=== PATIENT | female | born 1995 | race Caucasian/White ===

== ENCOUNTER 2022-05-25 14:43 | Emergency (ER) | payer OTHER, SELFPAY ==
[2022-05-25 14:58] VITALS: BP 117/71; PULSE 92; RESP 16; TEMP 36.8; O2SAT 99; BMI 30.2
--- NOTE | 2022-05-25 15:00 | ED_ITS ---
HPI - General Adult General Chief complaint: Dyspnea <Hugo Malik - Last Filed: 05/25/22 15:02> Stated complaint: SOB/Lightheaded <Hugo Mailk - Last Filed: 05/25/22 15:02> Time Seen by Provider: 05/25/22 15:08 <Hugo Malik - Last Filed: 05/25/22 15:02> Source: patient <CORONA Kramer - Last Filed: 05/25/22 20:12> Mode of arrival: ambulatory <CORONA Kramer - Last Filed: 05/25/22 20:12> History of Present Illness HPI narrative: 27-year-old female with no significant past medical history presenting to the ED complaining of abnormal vaginal discharge/spotting beginning last night with associated lightheadedness and mild SOB. Denies taking anticoagulation. Reports recent sexual encounter with female, however denies concern for STI. LMP a few weeks ago. Denies dysuria, hematuria, abdominal pain, back pain/flank pain, CP, cough, recent travel, history of clots <CORONA Kramer - Last Filed: 05/25/22 20:12> Onset (ago): day(s) <CORONA Kramer - Last Filed: 05/25/22 20:12> Related Data Allergies/adverse reactions: Allergies Allergy/AdvReac Type Severity Reaction Status Date / Time fluoxetine [From Prozac] Allergy Unknown Verified 05/25/22 14:58 <Hugo Malik - Last Filed: 05/25/22 15:02> Review of Systems Review of Systems: Constitutional: No Fever, No Chills, No Fatigue, No Malaise ENT/Mouth: No Ear Pain, No Nasal Congestion, No sore throat, No Rhinorrhea, No Swallowing Difficulty Eyes: No Eye Pain, No Swelling, No Redness, No Vision Changes Cardiovascular: No Chest Pain, + SOB, No Edema, No Palpitations Respiratory: No Cough, No Sputum, No Dyspnea Gastrointestinal: No Nausea, No Vomiting, No Diarrhea, No Constipation, No Abdominal pain Genitourinary: + irregular bleeding, No Dysuria, No Urinary Frequency, No Hematuria, No Flank Pain Musculoskeletal: No joint pain, No Myalgias, No Joint Swelling Skin: No Skin Lesions, No rash Neuro: No Weakness, No Loss of Consciousness, + lightheaded, No Headache <CORONA Kramer - Last Filed: 05/25/22 20:12> Yes all other systems are reviewed and are negative <CORONA Kramer - Last Filed: 05/25/22 20:12> Constitutional: Constitutional: Reports as per HPI <CORONA Kramer - Last Filed: 05/25/22 20:12> Neurologic: Denies Abnormal speech present <CORONA Kramer - Last Filed: 05/25/22 20:12> [facility] Past Medical History Attestation statement: The following information was validated with the patient. <CORONA Kramer Last Filed: 05/25/22 20:12> Social History Social History: Social History Advance Directives: No Advance Directives Information Provided: Yes <Hugo Malik - Last Filed: 05/25/22 15:02> Physical Exam ED Vital Signs: Vital Signs - 24 hr 05/25/22 14:58 Temperature 98.3 F Pulse Rate 92 Respiratory Rate 16 Blood Pressure 117/71 Pulse Oximetry 99 Oxygen Delivery Method Room Air BMI result Body Mass Index 30.2 <Hugo Malik - Last Filed: 05/25/22 15:02> Vital Signs - 24 hr 05/25/22 14:58 Temperature 98.3 F Pulse Rate 92 Respiratory Rate 16 Blood Pressure 117/71 Pulse Oximetry 99 Oxygen Delivery Method Room Air BMI result Body Mass Index 30.2 <CORONA Kramer - Last Filed: 05/25/22 20:12> Const General: cooperative, healthy appearing, comfortable, no acute distress and anxious <CORONA Kramer - Last Filed: 05/25/22 20:12> Orientation/consciousness: patient oriented x3 <CORONA Kramer - Last Filed: 05/25/22 20:12> Limitations: no limitations <CORONA Kramer Last Filed: 05/25/22 20:12> HENMT Head: Yes normal to inspection and Yes atraumatic <CORONA Kramer - Last Filed: 05/25/22 20:12> Ears: hearing grossly normal bilaterally <CORONA Kramer - Last Filed: 05/25/22 20:12> General nose exam: Normal external nose present <CORONA Kramer - Last Filed: 05/25/22 20:12> Face and sinus: Yes normal facial exam <CORONA Kramer - Last Filed: 05/25/22 20:12> Eyes General: appearance normal, both eyes and all related structures <CORONA Kramer - Last Filed: 05/25/22 20:12> EOM: EOMs intact bilaterally <CORONA Kramer - Last Filed: 05/25/22 20:12> Neck Neck: Yes normal visual inspection and Yes no meningeal signs <CORONA Kramer - Last Filed: 05/25/22 20:12> Resp Effort & Inspection: normal respiratory effort and no respiratory distress <CORONA Kramer - Last Filed: 05/25/22 20:12> Auscultation: clear to auscultation bilaterally <Swetha Mao [place] - Last Filed: 05/25/22 20:12> Cardio Rate: regular rate <Swetha Mao [place] - Last Filed: 05/25/22 20:12> Heart sounds: S1 normal heart sound present and S2 normal heart sound present <Swetha Mao PA - Last Filed: 05/25/22 20:12> GI Inspection: Yes normal to inspection <Swetha Mao [place] - Last Filed: 05/25/22 20:12> Palpation (GI): Soft to palpation, nontender, no guarding and not rigid <Swetha Mao PA - Last Filed: 05/25/22 20:12> General: Yes no CVA tenderness <Swetha Mao PA - Last Filed: 05/25/22 20:12> External Female Exam: normal external appearance <CORONA Kramer - Last Filed: 05/25/22 20:12> Speculum Exam - Vagina: normal vaginal discharge, no lacerations, no lesions, vaginal bleeding (Scant vaginal bleeding) and no swelling <CORONA Kramer - Last Filed: 05/25/22 20:12> OB/external & speculum: vaginal bleeding (Scant vaginal bleeding) <CORONA Kramer - Last Filed: 05/25/22 20:12> Back/Spine/Pelvis Back: no CVA tenderness <CORONA Kramer - Last Filed: 05/25/22 20:12> Skin Rashes: no rashes <CORONA Kramer - Last Filed: 05/25/22 20:12> Wounds: no wounds <CORONA Kramer - Last Filed: 05/25/22 20:12> Neuro General: patient oriented x3, gait normal, tone normal, moves all extremities, no meningeal signs, no focal motor deficits and CN's II-XI intact bilaterally <CORONA Kramer - Last Filed: 05/25/22 20:12> Cranial nerves: Yes CN's II-XII intact bilaterally and Yes Bilaterally intact EOM present <CORONA Kramer - Last Filed: 05/25/22 20:12> Cognition (Neuro): normal cognition <CORONA Kramer - Last Filed: 05/25/22 20:12> Speech: No Abnormal speech present <CORONA Kramer - Last Filed: 05/25/22 20:12> Gait exam (Neuro): Normal gait present <CORONA Kramer - Last Filed: 05/25/22 20:12> Motor exam (neuro): 5/5 motor strength present throughout <CORONA Kramer - Last Filed: 05/25/22 20:12> Extrem General: Yes normal to inspection <CORONA Kramer - Last Filed: 05/25/22 20:12> Course Course Course Narrative: RME- 27 year old female presents for evaluation of lightheadedness and shortness of breath. Symptoms started today while walking. Patient reports that yesterday she had a small amount of blood when urinating and has been urinating more frequently. Plan for labs and UA <Hugo Malik - Last Filed: 05/25/22 15:02> RME- 27 year old female presents for evaluation of lightheadedness and shortness of breath. Symptoms started today while walking. Patient reports that yesterday she had a small amount of blood when urinating and has been urinating more frequently. Plan for labs and UA -labs and UA unremarkable Results discussed with patient including worrisome signs and symptoms and strict return precautions, and when to return to the emergency department. They verba lized understanding and feel safe for discharge at this time. <CORONA Kramer - Last Filed: 05/25/22 20:12> Medical Decision Making Medical Decision Making [facility] Narrative: 27-year-old female with no significant past medical history presenting to the ED complaining of abnormal vaginal discharge/spotting beginning last night with associated lightheadedness and mild SOB. On exam vital signs stable, patient is anxious, NAD, nontoxic appearing, abdomen soft/nontender, no CVA tenderness, scant vaginal bleeding noted on exam, no appreciable abnormal discha rge. No lesions. Lungs CTA. Concern for menstruation vs STI vs anemia vs viral syndrome or dehydration/metabolic abnormalities. Low suspicion for ovarian torsion/appendicitis, diverticulitis, PE/ACS. Rule out UTI/infectious etiology Plan: Labs, UA, , STI testing Please refer to course for remaining clinical decision making, interpretation of labs/imaging results, and discussions with consultants and/or family members. <CORONA Kramer - Last Filed: 05/25/22 20:12> Differential Diagnosis Differential Diagnoses: The differential diagnosis associated with the presentation includes <CORONA Kramer - Last Filed: 05/25/22 20:12> As above <CORONA Kramer - Last Filed: 05/25/22 20:12> Admission/Observation Consideration of admission/observation: Escalation of care including admission/observation considered <CORONA Kramer - Last Filed: 05/25/22 20:12> Lab Data [facility] Lab Attestation statement: I reviewed the patient's lab results. <CORONA Kramer - Last Filed: 05/25/22 20:12> Result Diagrams: 05/25/22 15:06 <Hugo Malik - Last Filed: 05/25/22 15:02> Labs: Lab Results 05/25/22 05/25/22 05/25/22 Range/Units 15:06 16:21 16:21 WBC 9.4 (4.8-10.8) X10*3/uL RBC 4.43 (4.20-5.50) X10*6/uL Hgb 12.6 (12.0-16.0) g/dl Hct 37.7 (37.0-47.0) % MCV 85.1 (80.0-98.0) fL MCH 28.4 (27.0-33.0) pg MCHC 33.4 (31.0-35.0) g/dl RDW 12.9 (11.0-16.0) % Plt Count 301 (160-400) X10*3/uL MPV 9.9 (9.4-12.3) fL Immature Gran % (Auto) 0.3 (0.0-0.4) % Neut % (Auto) 60.1 (45-73) % Lymph % (Auto) 28.2 (20-40) % [place] % (Auto) 8.1 (2-11) % Eos % (Auto) 2.8 (0-4) % Baso % (Auto) 0.5 (0-2) % Lymph # (Auto) 2.6 (1.2-4.9) X10*3/uL [place] # (Auto) 0.8 (0.1-1.2) X10*3/uL Eos # (Auto) 0.3 (0.0-0.4) X10*3/uL Baso # (Auto) 0.1 (0.0-0.2) X10*3/uL Abs Immat Gran (auto) 0.03 (0.00-0.03) X10*3/uL Absolute Neuts (auto) 5.6 (2.0-8.3) x10*3/uL Absolute Nucleated RBC 0.000 (0.0-0.012) X10*3/uL Nucleated RBC % (auto) 0.0 (0.0-0.2) /100WBC Sodium 138 (135-145) mmol/L Potassium 4.5 (3.3-5.1) mmol/L Chloride 106 (96-108) mmol/L Carbon Dioxide 23 (22-29) mmol/L Anion Gap 14 (12-20) BUN 11 (9-16) mg/dL Creatinine 0.75 (0.5-1.4) mg/dL Estim Creat Clear Calc 117.1 Estimated GFR > 60 Random Glucose 91 (60-115) mg/dL Calcium 9.8 (8.4-10.2) mg/dL Magnesium 2.1 (1.6-2.6) mg/dL Total Bilirubin 0.3 (0.0-1.0) mg/dL AST 14 (5-31) U/L ALT 17 (0-31) U/L Alkaline Phosphatase 42 (39-117) U/L Total Protein 7.1 (6.5-8.0) g/dL Albumin 4.5 (3.5-5.0) g/dL Beta HCG, Quant < 2 mIU/mL Urine Color Yellow Urine Appearance Clear Urine pH 7.0 (5.0-9.0) Ur Specific [place] 1.010 (1.005-1.025) Urine Protein Negative (Neg-Trace) mg/dL Urine Glucose (UA) Negative (Negative) mg/dL Urine Ketones Negative (Negative) mg/dL Urine Blood Trace H (Negative) Urine Nitrite Negative (Negative) Ur Leukocyte Esterase Trace H (Negative) Urine RBC 0-2 (0-2) /HPF Urine WBC 0-5 (0-5) /HPF Ur Squamous Epith Cells 3-5 (0-2) /HPF Urine Bacteria Trace (None Seen) Hyaline Casts 0-2 (0-2) /LPF <Hugo Malik - Last Filed: 05/25/22 15:02> Lab Results 05/25/22 05/25/22 05/25/22 Range/Units 15:06 16:21 16:21 WBC 9.4 (4.8-10.8) X10*3/uL RBC 4.43 (4.20-5.50) X10*6/uL Hgb 12.6 (12.0-16.0) g/dl Hct 37.7 (37.0-47.0) % MCV 85.1 (80.0-98.0) fL MCH 28.4 (27.0-33.0) pg MCHC 33.4 (31.0-35.0) g/dl RDW 12.9 (11.0-16.0) % Plt Count 301 (160-400) X10*3/uL MPV 9.9 (9.4-12.3) fL Immature Gran % (Auto) 0.3 (0.0-0.4) % Neut % (Auto) 60.1 (45-73) % Lymph % (Auto) 28.2 (20-40) % [place] % (Auto) 8.1 (2-11) % Eos % (Auto) 2.8 (0-4) % Baso % (Auto) 0.5 (0-2) % Lymph # (Auto) 2.6 (1.2-4.9) X10*3/uL [place] # (Auto) 0.8 (0.1-1.2) X10*3/uL Eos # (Auto) 0.3 (0.0-0.4) X10*3/uL Baso # (Auto) 0.1 (0.0-0.2) X10*3/uL Abs Immat Gran (auto) 0.03 (0.00-0.03) X10*3/uL Absolute Neuts (auto) 5.6 (2.0-8.3) x10*3/uL Absolute Nucleated RBC 0.000 (0.0-0.012) X10*3/uL Nucleated RBC % (auto) 0.0 (0.0-0.2) /100WBC Sodium 138 (135-145) mmol/L Potassium 4.5 (3.3-5.1) mmol/L Chloride 106 (96-108) mmol/L Carbon Dioxide 23 (22-29) mmol/L Anion Gap 14 (12-20) BUN 11 (9-16) mg/dL Creatinine 0.75 (0.5-1.4) mg/dL Estim Creat Clear Calc 117.1 Estimated GFR > 60 Random Glucose 91 (60-115) mg/dL Calcium 9.8 (8.4-10.2) mg/dL Magnesium 2.1 (1.6-2.6) mg/dL Total Bilirubin 0.3 (0.0-1.0) mg/dL AST 14 (5-31) U/L ALT 17 (0-31) U/L Alkaline Phosphatase 42 (39-117) U/L Total Protein 7.1 (6.5-8.0) g/dL Albumin 4.5 (3.5-5.0) g/dL Beta HCG, Quant < 2 mIU/mL Urine Color Yellow Urine Appearance Clear Urine pH 7.0 (5.0-9.0) Ur Specific [place] 1.010 (1.005-1.025) Urine Protein Negative (Neg-Trace) mg/dL Urine Glucose (UA) Negative (Negative) mg/dL Urine Ketones Negative (Negative) mg/dL Urine Blood Trace H (Negative) Urine Nitrite Negative (Negative) Ur Leukocyte Esterase Trace H (Negative) Urine RBC 0-2 (0-2) /HPF Urine WBC 0-5 (0-5) /HPF Ur Squamous Epith Cells 3-5 (0-2) /HPF Urine Bacteria Trace (None Seen) Hyaline Casts 0-2 (0-2) /LPF <CORONA Kramer - Last Filed: 05/25/22 20:12> Radiology Impression Discussion of test interpretation with radiology: I have reviewed the radiologist's reading. <CORONA Kramer - Last Filed: 05/25/22 20:12> External Record Review External record reviewed: Inpatient record, Office record, Outpatient record, Prior outpatient labs, Prior outpatient radiology, Primary care record and Outside ED record <CORONA Kramer - Last Filed: 05/25/22 20:12> Discharge Plan Discharge Clinical Impression: Vaginal spotting, Lightheaded <Hugo Malik - Last Filed: 05/25/22 15:02> Patient Disposition: Home, Self-Care <Hugo Malik - Last Filed: 05/25/22 15:02> Instructions: Lightheadedness (ED) <Hugo Malik - Last Filed: 05/25/22 15:02> Additional Instructions: Your blood work was reassuring. We tested you for sexually transmitted infections, these results should be back in 48-72 hours, you will be contacted with positive results only. Please avoid sexual contact until you knows the results of these cultures. Please stay hydrated If symptoms persist or worsen return to the emergency department <Hugo Malik - Last Filed: 05/25/22 15:02> Referrals: Physician,Unknown J [Primary Care Provider] - <Hugo Malik - Last Filed: 05/25/22 15:02> Interventions: ED Discharge Assessment Last Done: 05/25/22 18:39 <Hugo Malik - Last Filed: 05/25/22 15:02> Discharge Date/Time: 05/25/22 18:40 <Hugo Malik - Last Filed: 05/25/22 15:02>
[2022-05-25 15:29] LABS: Alanine Aminotransferase 17 U/L (0-31); Albumin Level 4.5 g/dL (3.5-5.0); Alkaline Phosphatase 42 U/L (39-117); Anion Gap 14 (12-20); Aspartate Amino Transferase 14 U/L (5-31); Bilirubin Total 0.3 mg/dL (0.0-1.0); Blood Urea Nitrogen 11 mg/dL (9-16); Calcium 9.8 mg/dL (8.4-10.2); Carbon Dioxide 23 mmol/L (22-29); Chloride 106 mmol/L (96-108); Creatinine Clr Calc Pharmacy 117.1; Estimated Glomerular Filt Rate > 60; Glucose Random 91 mg/dL (60-115); Potassium 4.5 mmol/L (3.3-5.1); Sodium 138 mmol/L (135-145); Total Protein 7.1 g/dL (6.5-8.0)
[2022-05-25 16:21] LABS: Magnesium 2.1 mg/dL (1.6-2.6)
[2022-05-25 16:27] LABS: HCG Quantitative < 2 mIU/mL
[2022-05-25 16:30] LABS: MANUAL DIFF FLAG NO
[2022-05-25 16:32] LABS: Basophils Absolute Auto 0.1 X10*3/uL (0.0-0.2); Basophils Percent Auto 0.5 % (0-2); Eosinophils Absolute Auto 0.3 X10*3/uL (0.0-0.4); Eosinophils Percent Auto 2.8 % (0-4); Hematocrit 37.7 % (37.0-47.0); Hemoglobin 12.6 g/dl (12.0-16.0); Imm Gran Abs Auto 0.03 X10*3/uL (0.00-0.03); Imm Gran Pct Auto 0.3 % (0.0-0.4); Lymphocytes Absolute Auto 2.6 X10*3/uL (1.2-4.9); Lymphocytes Percent Auto 28.2 % (20-40); Mean Corpuscular HGB Conc 33.4 g/dl (31.0-35.0); Mean Corpuscular Hemoglobin 28.4 pg (27.0-33.0); Mean Corpuscular Volume 85.1 fL (80.0-98.0); Mean Platelet Volume 9.9 fL (9.4-12.3); Monocytes Absolute Auto 0.8 X10*3/uL (0.1-1.2); Monocytes Percent Auto 8.1 % (2-11); Neutrophils Absolute Auto 5.6 x10*3/uL (2.0-8.3); Neutrophils Percent Auto 60.1 % (45-73); Platelet Count 301 X10*3/uL (160-400); Red Blood Count 4.43 X10*6/uL (4.20-5.50); Red Cell Distribution Width 12.9 % (11.0-16.0); White Blood Count 9.4 X10*3/uL (4.8-10.8)
[2022-05-25 16:34] LABS: Appearance Urine Clear; Color Urine Yellow; Glucose Urine UA Negative (Negative); Leukocyte Esterase Urine Trace (Negative); Nitrite Urine Negative (Negative); UMIC TRIGGER UACC YES; Urine Blood Trace (Negative); Urine Ketones Negative (Negative); Urine Protein Negative (Neg-Trace)
[2022-05-25 16:39] LABS: Bacteria Urine Trace (None Seen); Hyaline Casts Urine 0-2 /LPF (0-2); RBC Urine 0-2 /HPF (0-2); WBC Urine 0-5 /HPF (0-5)
[2022-05-26 02:17] LABS: CT PCR NOT DETECTED (Not Detect.); NG PCR NOT DETECTED (Not Detect.)
== END 2022-05-25 18:40 | disposition home or self-care (01) ==
PROVIDERS: Physician Assistant; Emergency Provider Emergency Medicine
DX: N92.1 Excessive and frequent menstruation with irregular cycle (principal); N89.8 Other specified noninflammatory disorders of vagina; R42 Dizziness and giddiness
CPT/HCPCS: 0353U; 36415; 80053; 81001; 83735; 84702; 85025; 87480; 87510; 87660; 99282; 99283